=== PATIENT | male | born 1955 | race Asian ===

== ENCOUNTER 2017-12-25 12:24 | Emergency (ER) | payer MEDICARE ==
[~2017-12-25] VITALS: Ht 175.3 cm; Wt 96.0 kg
[~2017-12-25 12:24] MED LIST: ASPI-496 PO; ATOR20TA PO; CARV3.122 PO; CLOP75TA PO; COLC0.6T37 PO; FEBU80TA2 PO; GABA100C PO; INDO75CA3 PO; ISOS20TA3 PO; LISI5TAB7 PO; TAMS0.4C2 PO; TICA90TA PO
[2017-12-25 13:52] LABS: BASOPHILS # (AUTO) 0.01 x10^3/uL (0-0.1); BASOPHILS % (AUTO) 0 % (0-1); EOSINOPHILS # (AUTO) 0.18 x10^3/uL (0-0.4); EOSINOPHILS % (AUTO) 5 % (1-7); LYMPHOCYTES # (AUTO) 1.02 x10^3/uL (1-3.4); LYMPHOCYTES % (AUTO) 26 % (22-44); MD NO; MEAN CORPUSCULAR HEMOGLOBIN 30.8 pg (27.5-34.5); MEAN CORPUSCULAR HGB CONC 34.3 g/dL (33.2-36.2); MEAN CORPUSCULAR VOLUME 89.9 fL (81-97); MEAN PLATELET VOLUME 7.8 fL (7.4-10.4); MONOCYTES # (AUTO) 0.46 x10^3/uL (0.2-0.8); MONOCYTES % (AUTO) 12 % (2-9); NEUTROPHILS % (AUTO) 57 % (42-75); PLATELET COUNT 226 x10^3/uL (130-400); RED BLOOD COUNT 4.87 x10^6/uL (4.38-5.82); RED CELL DISTRIBUTION WIDTH 15.1 % (9.4-14.8)
[2017-12-25 13:59] LABS: ALBUMIN 3.4 g/dL (3.4-5.0); ANION GAP 11 mmol/L (5-15); CALCIUM 8.5 mg/dL (8.5-10.1); CHLORIDE 110 mmol/L (98-107); CREATININE 1.18 mg/dL (0.7-1.3)
[2017-12-25 14:02] LABS: TROPONIN I < 0.015 ng/mL (0.000-0.045)
[2017-12-25] MEDS ORDERED: OMNIPAQUE 350 MG/ML, 100ML BOTTLE ONE (16:19)
[2017-12-25 17:14] VITALS: BP 108/64
== END 2017-12-25 18:53 | disposition home or self-care (01) ==
LOC: ED 18:47
DX: R06.00 Dyspnea, unspecified (principal); R07.89 Other chest pain; I11.9 Hypertensive heart disease without heart failure; E78.00 Pure hypercholesterolemia, unspecified; I25.2 Old myocardial infarction; Z95.1 Presence of aortocoronary bypass graft
CPT/HCPCS: 36415; 71046; 71275; 80048; 82040; 83880; 84484; 85025; 93005; 99285; Q9967

== ENCOUNTER 2018-04-15 10:46 | Emergency (ER) | payer MEDICARE ==
[~2018-04-15] VITALS: Ht 175.3 cm; Wt 99.0 kg
[2018-04-15 11:12] VITALS: BP 141/98
== END 2018-04-15 11:51 | disposition home or self-care (01) ==
LOC: ED 11:48
DX: L20.84 Intrinsic (allergic) eczema (principal); I25.2 Old myocardial infarction; I10 Essential (primary) hypertension; E78.00 Pure hypercholesterolemia, unspecified; M10.9 Gout, unspecified; Z95.1 Presence of aortocoronary bypass graft
CPT/HCPCS: 99283

== ENCOUNTER → 2018-12-07 | Outpatient (CLI) | payer MEDICARE, OTHER ==
[~2018-12-07] MED LIST changes: +REGADENOSON 0.4 MG/5 ML SYRINGE ONE
== END | disposition home or self-care (01) ==
LOC: CFH 07:35
PROVIDERS: ATTEND Internal Medicine Cardiovascular Disease
DX: I11.9 Hypertensive heart disease without heart failure (principal); I08.1 Rheumatic disorders of both mitral and tricuspid valves; I25.89 Other forms of chronic ischemic heart disease; E78.5 Hyperlipidemia, unspecified; E11.9 Type 2 diabetes mellitus without complications; I25.10 Atherosclerotic heart disease of native coronary artery without angina pectoris
CPT/HCPCS: 78452; 93017; 93306; A9502; J2785

== ENCOUNTER 2018-12-24 08:30 | Emergency (ER) | payer MEDICARE, OTHER ==
[~2018-12-24] VITALS: Ht 175.3 cm; Wt 109.1 kg
[~2018-12-24 08:30] MED LIST changes: -REGADENOSON 0.4 MG/5 ML SYRINGE ONE
[2018-12-24 08:42] VITALS: BP 139/107
[2018-12-24] MEDS ORDERED: HYDROcodone/APAP 5/325 TABLET ONE (09:59)
[2018-12-24] MEDS ORDERED: KETOROLAC 30 MG/1 ML ONE ×2 (10:00)
[2018-12-24] MEDS ORDERED: HYDROcodone/APAP 5/325 TABLET PO ONE (10:00)
[2018-12-24] MEDS ORDERED: KETOROLAC 30 MG/1 ML IM ONE (10:00)
== END 2018-12-24 11:00 | disposition home or self-care (01) ==
LOC: MERGE 09:22 → ED 09:22
DX: M25.562 Pain in left knee (principal)
CPT/HCPCS: 73564; 96372; 99283; J1885

== ENCOUNTER 2018-12-30 19:15 | Inpatient (IN) | payer MEDICARE, OTHER ==
[~2018-12-30] VITALS: Ht 175.3 cm; Wt 102.6 kg
[2018-12-30] MEDS ORDERED: SODIUM CHLORIDE FLUSH 10ML SYR IVF ONE (19:30)
[2018-12-30] MEDS ORDERED: ASPIRIN 81 MG TABLET CHEW PO ONE (19:30)
[2018-12-30] MEDS ORDERED: ASPIRIN 81 MG TABLET CHEW ONE (19:32)
[2018-12-30 19:48] LABS: BASOPHILS # (AUTO) 0.01 x10^3/uL (0-0.1); BASOPHILS % (AUTO) 0 % (0-1); EOSINOPHILS # (AUTO) 0.19 x10^3/uL (0-0.4); EOSINOPHILS % (AUTO) 4 % (1-7); LYMPHOCYTES # (AUTO) 1.24 x10^3/uL (1-3.4); LYMPHOCYTES % (AUTO) 24 % (22-44); MD NO; MEAN CORPUSCULAR HEMOGLOBIN 31.1 pg (27.5-34.5); MEAN CORPUSCULAR HGB CONC 34.1 g/dL (33.2-36.2); MEAN CORPUSCULAR VOLUME 91.2 fL (81-97); MEAN PLATELET VOLUME 7.3 fL (7.4-10.4); MONOCYTES # (AUTO) 0.52 x10^3/uL (0.2-0.8); MONOCYTES % (AUTO) 10 % (2-9); NEUTROPHILS # (AUTO) 3.13 x10^3/uL (1.8-6.8); NEUTROPHILS % (AUTO) 62 % (42-75); PLATELET COUNT 236 x10^3/uL (130-400); RED BLOOD COUNT 4.68 x10^6/uL (4.38-5.82); RED CELL DISTRIBUTION WIDTH 14.7 % (9.4-14.8)
[2018-12-30 20:00] LABS: ALBUMIN 3.7 g/dL (3.4-5.0); ANION GAP 5 mmol/L (5-15); CALCIUM 8.7 mg/dL (8.5-10.1); CHLORIDE 112 mmol/L (98-107)
[2018-12-30 20:10] LABS: INTERNATIONAL NORMALIZED RATIO 1.02 (0.93-1.1); PROTHROMBIN TIME 10.7 Seconds (9.6-11.5)
--- NOTE | 2018-12-30 20:15 | NUR ---
REPORT FROM MITCHELL DONALDSON. PT RESTING COMFORTABLY, NAD. VSS. CALL LIGHT WITHIN REACH.
[2018-12-30 20:27] LABS: TROPONIN I < 0.015 ng/mL (0.000-0.045)
--- NOTE | 2018-12-30 21:18 | NUR ---
PT SLEEPING, NAD. WARM BLANKET PROVIDED, CALL LIGHT WITHIN REACH.
[2018-12-30] MEDS ORDERED: MORPHINE SULFATE 4 MG/ML, 1ML IVPush PRN (21:30)
[2018-12-30] MEDS ORDERED: ACETAMINOPHEN 325 MG TABLET PO PRN (21:30)
[2018-12-30] MEDS ORDERED: NITROGLYCERIN 0.4 MG/SPRAY SL PRN (21:30)
[2018-12-30] MEDS ORDERED: NITROGLYCERIN 0.4 MG BOTTLE (25 TABS) SL PRN (21:30)
[2018-12-30] MEDS ORDERED: ONDANSETRON 2MG/ML, 2ML IVPush PRN (21:30)
[2018-12-30 22:43] VITALS: BP 108/65
[2018-12-30] MEDS: HEPARIN 5,000 UNITS/ML, 1ML SQ SCH (23:26)
[2018-12-31 01:43] LABS: TROPONIN I < 0.015 ng/mL (0.000-0.045)
[2018-12-31 01:47] VITALS: BP 93/56
[2018-12-31 06:30] LABS: MEAN CORPUSCULAR HEMOGLOBIN 30.8 pg (27.5-34.5); MEAN CORPUSCULAR HGB CONC 33.6 g/dL (33.2-36.2); MEAN CORPUSCULAR VOLUME 91.5 fL (81-97); MEAN PLATELET VOLUME 7.7 fL (7.4-10.4); PLATELET COUNT 237 x10^3/uL (130-400); RED BLOOD COUNT 4.69 x10^6/uL (4.38-5.82); RED CELL DISTRIBUTION WIDTH 14.8 % (9.4-14.8)
[2018-12-31 06:32] LABS: CHLORIDE 113 mmol/L (98-107)
[2018-12-31 06:46] LABS: ANION GAP 7 mmol/L (5-15); CALCIUM 8.3 mg/dL (8.5-10.1); CREATININE 1.12 mg/dL (0.7-1.3)
[2018-12-31 06:47] LABS: BASOPHILS # (AUTO) 0.01 x10^3/uL (0-0.1); BASOPHILS % (AUTO) 0 % (0-1); EOSINOPHILS % (AUTO) 5 % (1-7); LYMPHOCYTES # (AUTO) 1.07 x10^3/uL (1-3.4); LYMPHOCYTES % (AUTO) 27 % (22-44); MD NO; MONOCYTES # (AUTO) 0.43 x10^3/uL (0.2-0.8); MONOCYTES % (AUTO) 11 % (2-9); NEUTROPHILS # (AUTO) 2.25 x10^3/uL (1.8-6.8); NEUTROPHILS % (AUTO) 57 % (42-75)
[2018-12-31 07:35] VITALS: BP 134/84
[2018-12-31] MEDS: HEPARIN 5,000 UNITS/ML, 1ML SQ SCH ×3 (08:07→23:52)
[2018-12-31] MEDS: CLOPIDOGREL 75 MG TABLET PO SCH (08:08)
[2018-12-31] MEDS: ISOSORBIDE MONONITRATE 20 MG TABLET PO SCH (08:08)
[2018-12-31] MEDS: LISINOPRIL 5 MG TABLET PO SCH (08:08)
[2018-12-31 08:52] LABS: CHOL/HDL RATIO 2.9; LDL/HDL RATIO 1.4 (0.5-3.0)
[2018-12-31 08:56] LABS: HEMOGLOBIN A1C 6.1 % (4.2-6.3)
[2018-12-31] MEDS ORDERED: ASPIRIN 81 MG TABLET EC PO SCH (09:00)
[2018-12-31] MEDS ORDERED: SODIUM CHLORIDE 0.9% 1,000 ML IV SCH ×2 (11:30→16:49)
[2018-12-31 14:05] VITALS: BP 124/68
[2018-12-31] MEDS ORDERED: BIVALIRUDIN 250 MG ONE (15:38)
[2018-12-31] MEDS ORDERED: MIDAZOLAM 1 MG/ML, 5ML ONE (15:38)
[2018-12-31] MEDS ORDERED: LIDOCAINE 2%, 20ML ONE (15:38)
[2018-12-31] MEDS ORDERED: TICAGRELOR 90 MG TABLET ONE (15:38)
[2018-12-31] MEDS ORDERED: HEPARIN 1,000 UNITS/ML, 10ML ONE (15:38)
[2018-12-31] MEDS ORDERED: FENTANYL PF 100 MCG/2ML ONE (15:38)
[2018-12-31] MEDS ORDERED: CLOPIDOGREL 75 MG TABLET ONE (16:09)
[2018-12-31 20:26] VITALS: BP 123/78
[2019-01-01 01:17] VITALS: BP 136/68
[2019-01-01 05:59] LABS: CHLORIDE 112 mmol/L (98-107)
[2019-01-01 06:25] LABS: ANION GAP 7 mmol/L (5-15); CALCIUM 8.2 mg/dL (8.5-10.1); CREATININE 0.99 mg/dL (0.7-1.3)
[2019-01-01 07:24] VITALS: BP 129/79
[2019-01-01] MEDS ORDERED: ASPIRIN 81 MG TABLET EC PO SCH (09:00)
[2019-01-01] MEDS: HEPARIN 5,000 UNITS/ML, 1ML SQ SCH (09:47)
[2019-01-01] MEDS: ISOSORBIDE MONONITRATE 20 MG TABLET PO SCH (09:47)
[2019-01-01] MEDS: CLOPIDOGREL 75 MG TABLET PO SCH (09:47)
[2019-01-01] MEDS: LISINOPRIL 5 MG TABLET PO SCH (09:48)
[2019-01-01] MEDS ORDERED: EZETIMIBE 10 MG TABLET PO SCH (10:30)
[2019-01-01] MEDS ORDERED: ATOR-2 PO (12:42)
[2019-01-01] MEDS ORDERED: CARV3.1212 PO (12:42)
[2019-01-01] MEDS ORDERED: EZET10TA18 PO (12:42)
[2019-01-01 13:18] VITALS: BP 124/73
[2019-01-01] MEDS ORDERED: CARVEDILOL 3.125 MG TABLET PO SCH (18:00)
[2019-01-01] MEDS ORDERED: ATORVASTATIN 80 MG TABLET PO SCH (21:00)
[2019-01-01] MEDS ORDERED: ATORVASTATIN 40 MG TABLET PO SCH (21:00)
== END 2019-01-01 14:24 | disposition home or self-care (01) | DRG 246 ==
LOC: ED 19:53 → EDIP 21:01 → 5SO 22:25 → DCLOUNGE 01-01 14:17
PROVIDERS: ADMIT Family Medicine; ATTEND Family Medicine
PROC: 027034Z Dilation of Coronary Artery, One Artery with Drug-eluting Intraluminal Device, Percutaneous Approach (ICD-10-PCS; principal; 2018-12-31)
PROC: 4A023N7 Measurement of Cardiac Sampling and Pressure, Left Heart, Percutaneous Approach (ICD-10-PCS; 2018-12-31)
PROC: B2111ZZ Fluoroscopy of Multiple Coronary Arteries using Low Osmolar Contrast (ICD-10-PCS; 2018-12-31)
PROC: B2151ZZ Fluoroscopy of Left Heart using Low Osmolar Contrast (ICD-10-PCS; 2018-12-31)
PROC: B2181ZZ Fluoroscopy of Left Internal Mammary Bypass Graft using Low Osmolar Contrast (ICD-10-PCS; 2018-12-31)
PROC: B2131ZZ Fluoroscopy of Multiple Coronary Artery Bypass Grafts using Low Osmolar Contrast (ICD-10-PCS; 2018-12-31)
DX: T82.898A Other specified complication of vascular prosthetic devices, implants and grafts, initial encounter (principal); I50.21 Acute systolic (congestive) heart failure; I25.110 Atherosclerotic heart disease of native coronary artery with unstable angina pectoris; M10.9 Gout, unspecified; I25.2 Old myocardial infarction; E78.5 Hyperlipidemia, unspecified; E78.00 Pure hypercholesterolemia, unspecified; R00.1 Bradycardia, unspecified; I10 Essential (primary) hypertension; I25.82 Chronic total occlusion of coronary artery; Y83.2 Surgical operation with anastomosis, bypass or graft as the cause of abnormal reaction of the patient, or of later complication, without mention of misadventure at the time of the procedure; Z79.02 Long term (current) use of antithrombotics/antiplatelets; Z79.82 Long term (current) use of aspirin; Z79.899 Other long term (current) drug therapy; Z87.891 Personal history of nicotine dependence; Z95.1 Presence of aortocoronary bypass graft; Z95.5 Presence of coronary angioplasty implant and graft; Y92.89 Other specified places as the place of occurrence of the external cause; I11.0 Hypertensive heart disease with heart failure
CPT/HCPCS: 36415; 71045; 80048; 80061; 82040; 83036; 83735; 83880; 84100; 84443; 84484; 85025; 85610; 93005; 93458; 99156; 99157; 99285; C1769; C1894; C9600; G0378; J0583; J1644; J2250; J3010; C1725; C1874; C1887; J7030; Q9967

== ENCOUNTER 2019-06-30 09:13 | Emergency (ER) | payer OTHER, MEDICARE ==
[~2019-06-30] VITALS: Ht 175.3 cm; Wt 100.0 kg
[~2019-06-30 09:13] MED LIST changes: +ATOR-2 PO; +CARV3.1212 PO; +EZET10TA70 PO
--- NOTE | 2019-06-30 09:38 | NUR ---
PT TO ED WITH CHEST PAIN AND SOB - SUBSTERNAL CP, RADIATES TO BACK NO CHANGE WITH RESPIRATION. PAIN STARTED LAST NIGHT "IT COMES AND GOES"HX CABG 2010, STENTS X 5 2015, SENT X 1 12/2018. PT PLACED ON MONITOR. MD AT BEDSIDE FOR EVAL
[2019-06-30] MEDS ORDERED: NITROGLYCERIN SINGLE TAB 0.4 MG SL ONE (09:43)
[2019-06-30 09:53] LABS: BASOPHILS # (AUTO) 0.01 x10^3/uL (0-0.1); BASOPHILS % (AUTO) 0 % (0-1); EOSINOPHILS # (AUTO) 0.19 x10^3/uL (0-0.4); EOSINOPHILS % (AUTO) 4 % (1-7); LYMPHOCYTES # (AUTO) 1.28 x10^3/uL (1-3.4); LYMPHOCYTES % (AUTO) 27 % (22-44); MD NO; MEAN CORPUSCULAR HEMOGLOBIN 30.1 pg (27.5-34.5); MEAN CORPUSCULAR HGB CONC 32.4 g/dL (33.2-36.2); MEAN CORPUSCULAR VOLUME 92.9 fL (81-97); MONOCYTES # (AUTO) 0.57 x10^3/uL (0.2-0.8); MONOCYTES % (AUTO) 12 % (2-9); NEUTROPHILS # (AUTO) 2.63 x10^3/uL (1.8-6.8); NEUTROPHILS % (AUTO) 56 % (42-75); PLATELET COUNT 302 x10^3/uL (130-400); RED CELL DISTRIBUTION WIDTH 15.5 % (9.4-14.8)
[2019-06-30] MEDS ORDERED: NITROGLYCERIN SINGLE TAB 0.4 MG SL PRN (10:00)
--- NOTE | 2019-06-30 10:03 | NUR ---
PT GIVEN NITRO WITH SOME RELIEF, REQUESTED ADDITIONAL DOSE. ADDITIONAL DOSE ADMINISTERED PER MAR, BP 124/54
[2019-06-30 10:05] LABS: ALBUMIN 3.5 g/dL (3.4-5.0); ANION GAP 6 mmol/L (5-15); CALCIUM 8.6 mg/dL (8.5-10.1); CHLORIDE 112 mmol/L (98-107); CREATININE 1.22 mg/dL (0.7-1.3)
[2019-06-30 10:09] LABS: TROPONIN I < 0.015 ng/mL (0.000-0.045)
--- NOTE | 2019-06-30 11:08 | NUR ---
3RD DOSE OF NITRO ADMINISTERED, PT STATES RELIEF.
--- NOTE | 2019-06-30 11:25 | NUR ---
ADMITTING MD AT BEDSIDE
[2019-06-30 11:32] VITALS: BP 136/62
[2019-06-30] MEDS ORDERED: HEPARIN 5,000 UNITS/ML, 1ML SQ SCH (12:30)
[2019-06-30] MEDS ORDERED: ACETAMINOPHEN 325 MG TABLET PO PRN (12:30)
[2019-06-30] MEDS ORDERED: NITROGLYCERIN 0.4 MG/SPRAY SL PRN (12:30)
[2019-06-30] MEDS ORDERED: EZETIMIBE 10 MG TABLET PO SCH (12:30)
[2019-06-30] MEDS ORDERED: ENALAPRILAT 1.25 MG/ML, 2ML IVPush PRN (12:30)
[2019-06-30] MEDS ORDERED: LABETALOL 5MG/ML, 20ML IVPush PRN (12:30)
[2019-06-30] MEDS ORDERED: NITROGLYCERIN 0.4 MG BOTTLE (25 TABS) SL PRN (12:30)
--- NOTE | 2019-06-30 12:48 | NUR ---
RN WALKED BY ROOM AND PATIENT/PATIENT BELONGINGS GONE, ALL MONITORS ON FLOOR. RN ALERTED STAFF AND LOOKED FOR PATIENT, PT NOT IN ED. NOTIFIED.
[2019-06-30] MEDS ORDERED: CARVEDILOL 3.125 MG TABLET PO SCH (18:00)
[2019-06-30] MEDS ORDERED: ATORVASTATIN 80 MG TABLET PO SCH (21:00)
[2019-07-01] MEDS ORDERED: ISOSORBIDE MONONITRATE 20 MG TABLET PO SCH (09:00)
[2019-07-01] MEDS ORDERED: CLOPIDOGREL 75 MG TABLET PO SCH (09:00)
[2019-07-01] MEDS ORDERED: ASPIRIN 81 MG TABLET EC PO SCH (09:00)
[2019-07-01] MEDS ORDERED: LISINOPRIL 5 MG TABLET PO SCH (09:00)
[2019-07-05] MEDS ORDERED: NALOXONE 0.4 MG/ML, 1ML ONE (07:53)
[2019-07-07] MEDS ORDERED: ALBUTEROL/IPRATROPIUM 2.5MG/0.5MG, 3 ML ONE (02:29)
== END 2019-07-09 23:17 | disposition left against medical advice (07) ==
LOC: ED 10:45 → EDIP 10:46 → UNDOADMIN 10:46 → ED 11:14 → EDIP 07-01 15:48 → ED 07-09 23:17
DX: R07.89 Other chest pain (principal); I25.10 Atherosclerotic heart disease of native coronary artery without angina pectoris; I25.2 Old myocardial infarction; E78.00 Pure hypercholesterolemia, unspecified; I10 Essential (primary) hypertension
CPT/HCPCS: 36415; 71045; 80048; 82040; 84484; 85025; 93005; 99284; 99285

== ENCOUNTER → 2020-01-14 | Outpatient (CLI) | payer MEDICARE, OTHER | END | disposition home or self-care (01) | LOC: CFH 08:22 → MERGE 08:22 | PROVIDERS: ATTEND Internal Medicine Cardiovascular Disease | DX: R93.1 Abnormal findings on diagnostic imaging of heart and coronary circulation (principal); R07.9 Chest pain, unspecified; R06.02 Shortness of breath | CPT/HCPCS: 78452; 93017; A9502 ==

== ENCOUNTER → 2021-03-27 | Outpatient (CLI) | payer MEDICARE, OTHER ==
[~2021-03-27] MED LIST changes: +ISOS20TA10 PO; -ISOS20TA3 PO
== END | disposition home or self-care (01) ==
LOC: CVU 11:30
PROVIDERS: ATTEND Internal Medicine Cardiovascular Disease
DX: I08.2 Rheumatic disorders of both aortic and tricuspid valves (principal); I25.810 Atherosclerosis of coronary artery bypass graft(s) without angina pectoris; I11.9 Hypertensive heart disease without heart failure; E11.9 Type 2 diabetes mellitus without complications; E78.5 Hyperlipidemia, unspecified; Z95.1 Presence of aortocoronary bypass graft
CPT/HCPCS: 93306; 93356

== ENCOUNTER 2021-05-17 12:25 | Outpatient (CLI) | payer MEDICARE, OTHER ==
[2021-05-17] MEDS ORDERED: OMNIPAQUE 350 MG/ML, 100ML BOTTLE ONE (13:19)
== END 2021-05-17 23:59 | disposition home or self-care (01) ==
LOC: RAD 12:25
PROVIDERS: ATTEND Internal Medicine Cardiovascular Disease
DX: I77.810 Thoracic aortic ectasia (principal)
CPT/HCPCS: 71275; Q9967